=== PATIENT | male | born 1950 | race Caucasian/White ===

== ENCOUNTER 2019-05-25 06:55 | Day surgery (SDC) | payer BC ==
[~2019-05-25 06:55] MED LIST: CEFAZOLIN 2 Gram 2 GM/50 ML BAG IVPB ONE
[2019-05-25] MEDS ORDERED: BUPIVACAINE 0.25% MPF 30ML VIAL IVP ONE (06:56)
[2019-05-25] MEDS ORDERED: BUPIVACAINE LIPOSOME/PF 133MG/10ML VIAL IV ONE (06:56)
[2019-05-25] MEDS ORDERED: *PACU ONLY* KETAMINE HCL 10 MG/ML (20ML) VIAL IV ONE (06:56)
[2019-05-25] MEDS ORDERED: DEXAMETHASONE 4 MG/ML 1ML VIAL IVP ONE (06:56)
[2019-05-25] MEDS ORDERED: PROPOFOL 10 MG/ML VIAL IV ONE (06:56)
[2019-05-25] MEDS ORDERED: GLYCOPYRROLATE 0.2 MG/ML ML IV ONE (06:56)
[2019-05-25] MEDS ORDERED: MIDAZOLAM HCL 2MG/2ML VIAL IV ONE (06:56)
[2019-05-25] MEDS ORDERED: RINGERS SOLUTION,LACTATED 1,000 ML IV ONE ×2 (07:30→09:19)
[2019-05-25] MEDS ORDERED: BUPIVACAINE 0.5% W/EPI MPF 30 ML VIAL SQ ONE (09:37)
[2019-05-25] MEDS ORDERED: MORPHINE SULFATE 10MG/1ML **1ML VIAL IU ONE (10:36)
[2019-05-25] MEDS ORDERED: KETOROLAC 30 MG/ML VIAL IVP ONE (11:24)
--- NOTE | 2019-05-27 08:20 | Operative Note ---
DATE OF SURGERY: 05/25/2019 PREOPERATIVE DIAGNOSIS: Tear of the rotator cuff on the right. POSTOPERATIVE DIAGNOSES: 1. Large chronic tear of the rotator cuff on the right. 2. Diffuse synovitis right shoulder. 3. Complex superior glenohumeral labral tear. 4. Profound external impingement right shoulder. 5. Advanced arthrosis right distal clavicle. OPERATION: 1. Open repair of a chronically torn right rotator cuff tear. 2. Right shoulder arthroscopy with interarticular debridement with complete synovectomy. 3. Right shoulder open acromioplasty, CA ligament resection, subacromial bursectomy. 4. Right shoulder distal clavicle resection. STAFF SURGEON: Manjit Campo MD ANESTHESIA: Interscalene block with sedation. PREPARATION: Chloraprep. INDIVIDUAL CONSIDERATIONS: None. PROCEDURE: The patient was taken to the operating room and had a successful induction of a block. He was then placed in a semi-seated beach chair position. His right arm and shoulder were prepped and draped in the usual fashion. Examination under anesthesia showed no instability. The patient had posterior portal identified for arthroscopy. Skin was infiltrated with 0.5% Marcaine with epinephrine prior. A stab wound was made, and a blunt-tipped trocar for the scope was easily placed in the joint. The joint was inflated with normal saline. An anterior accessory portal was then made just inferior to the intact long head of the biceps tendon in a retrograde fashion with a Wissinger gamaliel, and the joint was irrigated out. The patient had an obvious large tear of the rotator cuff at the supraspinatus. Subscap was normal. Long head was intact. There was some fraying. There was fraying of the superior labrum and anterior labrum. This was debrided back with a shaver. There was soft change in the glenoid but the humeral head was intact. Quite a bit of synovitis superiorly and this was debrided out with a shaver. A little bit of synovitis in the inferior pouch was debrided but no loose bodies. After irrigation, portals were closed with lorena. The patient had an anterior approach to the subacromial space and distal clavicle. Skin was again infiltrated with 0.5% Marcaine with epinephrine prior. Sharp dissection carried down through skin and subcutaneous tissues. Small veins were coagulated with a Bovie. An anterior deltoid interval was then made. Care was taken not to split the deltoid more than about 4 cm distal to the anterior tip of the acromion to prevent injury to the axillary nerve. Once in the subacromial space, there was a large ahmadi of fluid consistent with a tear. The deltoid was then taken subperiosteally off the anterior aspect of the downsloping acromion, over the top of the intact CA ligament, and off the anterior aspect of the highly degenerated distal clavicle. CA ligament was resected. Distal clavicle was resected taking about 1 cm. The patient had downsloping acromion with spurs anteriorly. An anterior acromioplasty was performed taking about a centimeter tapering towards posteromedially to include the spurs at the AC joint. Most of the acromion taken was spur. The undersurface was then smoothed with a rasp. The patient had an extremely thickened bursa. I took almost a handful of bursa out of this man's shoulder. I now had a good look at the rotator cuff. The patient had a supraspinatus extending into the infraspinatus was completely torn off. I would say the infraspinatus portion was more [id number]. I burred up the tuberosity and made a small trough, freshened the ends of the tendon, brought the supraspinatus into the trough with retention sutures tied through holes distally. Most of the infraspinatus was [id number] which was done with buried knot #1 Ethibond sutures. I placed his shoulder through a full range of motion to ensure no further impingement. I thought I had a near anatomic repair. After irrigation, I went ahead and reattached the deltoid to the remaining acromion with multiple interrupted #2 Vicryl going directly through the bony acromion. The periosteal cuff of the distal clavicle was closed with a running #2 Vicryl. Anterior deltoid interval was closed with running #1 Vicryl. Subcu was closed with a running 2-0 plus Vicryl and skin was closed with lorena. The patient had 10 mg of morphine and 15 mL of 0.5% Marcaine with epinephrine infiltrated into the subacromial space throughout a sterile 18-gauge needle. A sterile bulky compressive dressing and sling were applied. The patient tolerated the procedure well. Needle and sponge counts were correct. Estimated blood loss was minimal. He was taken back to recovery in good condition. There were no complications. JULIAN
== END 2019-05-25 11:50 | disposition home or self-care (01) ==
LOC: SUR 06:55
PROVIDERS: ATTEND Orthopaedic Surgery
DX: M75.101 Unspecified rotator cuff tear or rupture of right shoulder, not specified as traumatic (principal); S43.431A Superior glenoid labrum lesion of right shoulder, initial encounter; M65.811 Other synovitis and tenosynovitis, right shoulder; M75.41 Impingement syndrome of right shoulder; M19.011 Primary osteoarthritis, right shoulder; I10 Essential (primary) hypertension; E78.00 Pure hypercholesterolemia, unspecified; I25.2 Old myocardial infarction; I25.10 Atherosclerotic heart disease of native coronary artery without angina pectoris; Z95.5 Presence of coronary angioplasty implant and graft; F17.210 Nicotine dependence, cigarettes, uncomplicated
CPT/HCPCS: 29821; 29822; 23412; 23130; 23120; 01610; 64415; J1885; J0690; C9290; J2270; J7120